=== PATIENT | male | born 1970 | race Caucasian/White ===

== ENCOUNTER 2020-01-01 13:23 | Emergency (ER) | payer BC, SELFPAY ==
--- NOTE | 2020-01-01 14:19 | ED_ITS ---
[facility] [place] Clinical Impression: Exposure to COVID-19 virus Disposition: Home, Self-Care Condition on Discharge: Good Instructions: Preventing the Spread of Coronavirus Discharge Instructions Additional Instructions: You have been tested for COVID19. Those results should be available later tonight. Please isolate yourself as if you are positive until results are received. Referrals: Emiliana Chapin [Primary Care Provider] - Forms: Work/School Release Time of Disposition: 14:27 Medical Decision Making - Dennis Inquiry Pt receiving controlled substance: No [facility] [place] - General Stated complaint: scratchy throat headache Time Seen by Provider: 01/01/20 14:19 - History of Present Illness Provider Complaint: Patient presents with runny nose and scratchy throat. No fever. Denies cough, shortness of air. No loss of taste or smell. No vomiting or diarrhea. No known exposure to COVID19 but would like to be tested before returning to work. Onset (ago): day(s) (1) Relieving factors: none Exacerbating factors: none Associated symptoms: denies other symptoms Treatments prior to arrival: none - Related Data Allergies Allergy/AdvReac Type Severity Reaction Status Date / Time NO KNOWN ALLERGIES Allergy Uncoded 05/17/17 15:17 [facility] History - Hepatitis A Screen Attestation statement:: This patient has been screened for Hepatitis A risk factors. I have reviewed the patient's past medical history: Yes ROS Obtained: Yes All systems reviewed & no additional complaints - Constitutional Constitutional: Denies body ache, Denies chills, Denies fatigue, Denies fever(s), Reports malaise - Eyes Eyes: Denies eye discharge, Denies itchy eyes - ENT Ears, Nose, Mouth, and Throat: Reports nasal congestion, Reports nasal discharge, Denies sinus pain, Reports sore throat - Cardiovascular Cardiovascular: Denies chest pain, Denies dyspnea - Respiratory Respiratory: No cough, No dyspnea - Gastrointestinal Gastrointestingal: Denies: diarrhea, vomiting Physical Exam - General General appearance: alert, in no apparent distress - Head Head exam: atraumatic, normocephalic - Eye Eye exam: Present: PERRL - ENT ENT exam: Present: normal oropharynx - Neck Neck exam: Present: normal inspection. Absent: lymphadenopathy - Chest Chest inspection: Present: normal inspection, symmetric chest wall rise - Respiratory Respiratory exam: Present: normal lung sounds bilaterally. Absent: respiratory distress - Cardiovascular Cardiovascular exam: Present: regular rate, normal rhythm - Neurological Exam Neurological exam: Present: alert, oriented X3 - Psychiatric Psychiatric exam: Present: normal affect, normal mood - Skin Skin exam: Present: warm, dry
[2020-01-01 14:27] VITALS: BP 146/96; PULSE 91; RESP 20; TEMP 36.7; O2SAT 98; BMI 29.5
[2020-01-01 14:30] VITALS: BP 146/96; PULSE 91; RESP 20; TEMP 36.7; O2SAT 98
== END 2020-01-01 14:35 | disposition home or self-care (01) ==
PROVIDERS: Emergency Provider Physician Assistant; PCP Family Medicine
DX: Z20.828 Contact with and (suspected) exposure to other viral communicable diseases (principal); R09.81 Nasal congestion; J02.9 Acute pharyngitis, unspecified
CPT/HCPCS: 99201; U0003

== ENCOUNTER 2023-10-20 23:20 | Emergency (ER) | payer BC, SELFPAY ==
[2023-10-20 23:22] VITALS: BP 123/85; PULSE 111; RESP 20; TEMP 36.7; O2SAT 97; BMI 28.2
--- NOTE | 2023-10-20 23:36 | ED_ITS ---
Discharge Plan Disposition Patient Disposition: Home, Self-Care Prescriptions Prescriptions: New amoxicillin-pot clavulanate 875-125 mg tablet 1 tab PO BID 7 Days Qty: 14 0RF Referrals Follow up/Referrals: Emiliana Chapin [Primary Care Provider] - See instructions Activity Restrictions/Add. Instructions Additional Instructions/Restrictions: Please use antibiotic drops as prescribed, 4 drops 4 times a day for 7 days. If your symptoms worsen or do not improve in the next couple of days, recommend picking up the new prescription for Augmentin and begin taking it. Clinical Impressions Clinical Impression: Otitis externa Qualifiers: Otitis externa type: other infective Chronicity: acute Laterality: right Qualified Code(s): H60.391 - Other infective otitis externa, right ear Discharge ED Provider: Ko Woodall Adult HPI General Chief complaint: Ear Stated complaint: pain, swelling, congestion in right ear Time Seen by Provider: 10/20/23 23:20 History of Present Illness HPI narrative: 53-year-old male with history of hypertension hyperlipidemia presents with right ear pain for the last several days. Denies fever. Reports he has not had a recent ear infection. Denies any recent water exposure. Does use Q-tips but does not insert them deeply. Related Data Previous Rx's Medication Instructions Recorded amoxicillin 875 mg-potassium 1 tab PO BID 7 days #14 tabs 10/20/23 clavulanate 125 mg tablet Allergies Allergy/AdvReac Type Severity Reaction Status Date / Time NO KNOWN ALLERGIES Allergy Uncoded 05/17/17 15:17 [facility] Disclaimer: The information contained in this section may have been updated after the patient was seen, as this information can be updated by other users. Social History Smoking Status: Never smoker alcohol intake: never current occupational status: other Travel in the last 8 weeks: None ROS Obtained: Yes All systems reviewed & no additional complaints except as documented Physical Exam General General appearance: alert and in no apparent distress Head Head exam: atraumatic and normocephalic Eye Eye exam: Present normal appearance, PERRL and EOMI ENT ENT exam: Present normal oropharynx, normal external ear exam and other (Left ear normal appearance. Right ear: Pinna normal. Canal erythematous, swollen with exudate. TM is nonerythematous, clear fluid noted.) Neck Neck exam: Present normal inspection and full ROM Chest Chest inspection: Present normal inspection and symmetric chest wall rise; Absent tenderness Respiratory Respiratory exam: Present normal lung sounds bilaterally; Absent respiratory distress Cardiovascular Cardiovascular exam: Present regular rate and normal rhythm Abdominal Exam Abdominal exam: Present soft; Absent distention, tenderness or guarding Extremities Exam Extremities exam: Present normal inspection; Absent edema or joint swelling Back Exam Back exam: Present normal inspection; Absent tenderness Neurological Exam Neurological exam: Present alert and oriented X3; Absent motor sensory deficit Psychiatric Psychiatric exam: Present normal affect and normal mood Skin Skin exam: Present warm, dry and normal color Lymphatic Lymphatic Findings: no adenopathy Medical Decision Making Medical Records Medical records reviewed: Yes I reviewed the patient's medical records. Dennis Inquiry Pt receiving controlled substance: No Dennis was queried for this patient: No Vital Signs: 10/20/23 23:22 Temperature 98.1 F Temperature Source Oral Pulse Rate [Right Radial] 111 H Respiratory Rate 20 Blood Pressure [Right Arm] 123/85 Blood Pressure Mean [Right Arm] 97 02 Sat by Pulse Oximetry 97 Oxygen Delivery Method Room Air Lab Data Lab results reviewed: Yes I reviewed the patient's lab results. Orders (Tests/Meds): ED MEDICATIONS Generic Name Dose Route Start Last Admin Trade Name Freq PRN Reason Stop Dose Admin Neomycin/Polymyxin/Hydrocortisone 10 ml 10/20/23 23:34 [id number] Otic Susp 10ml OT 10/20/23 23:35 ONCE ONE Medical Decision Narrative: 54-year-old male with history of hypertension hyperlipidemia presents with couple days of right ear pain.. History was obtained interactive discussion with patient. On arrival, patient is [afebrile, hemodynamically stable, satting appropriately, alert, oriented x4, GCS 15], moving all extremities spontaneously. Full physical exam performed and significant for findings consistent with right otitis externa. No mastoid tenderness on exam. Differential includes but is not limited to otitis media, otitis externa, mastoiditis.. Patient was given neomycin polymyxin hydrocortisone drops for symptomatic management and correction of underlying abnormalities. At this time he does not appear to have concomitant otitis media. I sent a prescription for Augmentin for the patient to take if his symptoms worsen or do not improve. Patient was discharged in stable condition with return precautions. Procedures Risk/Benefits of Procedure(s) Were Explained: Yes Critical Care Critical Care Time Critical Care Time: No
[2023-10-20 23:41] VITALS: BP 132/78; PULSE 70; RESP 20; TEMP 36.7; O2SAT 99
[2023-10-20] MEDS: NEOMYCIN-POLYMYXIN-HC OTIC SUSP 10ML 10 ML OT (23:45)
== END 2023-10-20 23:52 | disposition home or self-care (01) ==
PROVIDERS: Emergency Provider Emergency Medicine; PCP Family Medicine
DX: H60.391 Other infective otitis externa, right ear (principal)
CPT/HCPCS: 99283